=== PATIENT | male | born 1945 | race Caucasian/White ===

== ENCOUNTER → 2017-08-08 | Outpatient (CLI) | payer OTHER, BC ==
[~2017-08-08] MED LIST: CAYENNE PO; COZAAR 25 MG TA25 M2 PO; FISH OIL 1,0001 EAC5 PO; GLUCOSAMINE &1 EAC1 PO; VITAMINC500 PO
[2017-08-08 12:15] LABS: CREATININE 1.1 mg/dL (0.7-1.3)
== END ==
LOC: CAT 05:37
PROVIDERS: Internal Medicine Pulmonary Disease
DX: R91.1 Solitary pulmonary nodule (principal); D3A.090 Benign carcinoid tumor of the bronchus and lung; J98.4 Other disorders of lung; R91.8 Other nonspecific abnormal finding of lung field; J94.8 Other specified pleural conditions; K76.0 Fatty (change of) liver, not elsewhere classified; J98.09 Other diseases of bronchus, not elsewhere classified; Z85.118 Personal history of other malignant neoplasm of bronchus and lung

== ENCOUNTER → 2017-09-12 | Outpatient (CLI) | payer OTHER, BC ==
--- NOTE | ~2017-09-12 | PATH ---
[facility] [address] [facility] [place] [address] PATHOLOGY RPT PROCEDURE Name: DANIE RICE Room #: REG [facility]#: [id number] Admission: 09/12/17 Date of : 43 Discharge: Report #: [id number] Path Case #: [id number] Note [facility] Accession Number: [id number] TESTS RESULT FLAG UNITS REF RANGE LAB Clinician Provided Cytology Information No. of containers..01 Other (Miscellaneous) Source: BRONCH WASHING DIAGNOSIS: 02 BRONCH WASHING NEGATIVE FOR MALIGNANT CELLS. NORMAL BRONCHIAL CELLS AND MACROPHAGES ARE PRESENT. PULMONARY MACROPHAGES PRESENT, INDICATIVE OF LOWER RESPIRATORY TRACT SAMPLING. Signed out by: Samantha Keating MD, Pathologist NPI- [id number] Performed by: Marvel Salcedo, Veneer Drier Tailer ([facility]) Gross description: 01 13ML, RED, CLOUDY /LCS FLAG LEGEND: L-Low Normal,H-High Normal,LL-Alert Low,HH-Alert High <-Panic Low,>-Panic High,A-Abnormal,AA-Critical Abnormal Performed at: [address] [place] [address] Dante Lynne MD, [address] [address] Samantha Keating MD, Performed at: [address], [place], [place] [id number] MD Dante Lynne MD Phone: [phone]
--- NOTE | ~2017-09-12 | P ---
[facility] [place] [address] PROCEDURE REPORT Name: DWAYNEARY Room #: REG [facility]#: [id number] Admission: 09/12/17 Attend Phys: Medhat Diallo MD Discharge: Date of : 43 Report #: [id number] THIS REPORT FOR: //name// CC: Tahir Diallo DATE OF SERVICE: 09/12/2017 PROCEDURE: Fiberoptic bronchoscopy with biopsies of a stenosis of the right main stem bronchus. 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 ASA classification class 2. PROCEDURE NOTATION: After discussing risks, benefits of planned procedure with the patient, he desired to proceed. After obtaining informed consent, he was brought to [employer], was placed on continuous cardiopulmonary monitoring and supplemental oxygen, then given 2% lidocaine nebulized to anesthetize the upper respiratory tract. Once accomplished, he received conscious sedation. A total of 5 mg of Versed and 50 mcg of fentanyl were titrated during the procedure to provide adequate sedation. Once accomplished, a fiberoptic bronchoscope was advanced through an oral bite block until the vocal cords were visualized. Vocal cords moved appropriately both before and after procedure. 1% lidocaine was instilled in the vocal cords to provide topical anesthesia. Bronchoscope was then passed in the trachea and 1% lidocaine was instilled in the tracheobronchial tree bilaterally for topical anesthesia. Once complete, airways were surveyed. FINDINGS: Left-sided structures appeared patent. No significant anatomic variation or disease. Right main stem bronchus was severely stenotic. Several cytologic brushings and biopsies were obtained in the area of stenosis. Was not able to advance the bronchoscope beyond the stenosis due to the tightness of the opening. Some minor secretions were noted emanating from this airway as well. It was easy to pass the brush and forceps through the opening. Washings of this area were then collected and sent for microbiologic and cytologic tests. The patient tolerated procedure with no noted complications. IMPRESSION: Tight stenosis right main stem bronchus, likely will need some sort of intervention, possible recurrent malignancy versus airway stenosis from prior surgery and radiation. Suggest to await biopsies and culture results. By: [id number] Medhat Diallo MD /nt
--- NOTE | ~2017-09-12 | PATH ---
[facility] [address] [place] [address] PATHOLOGY RPT PROCEDURE Name: DANIE RICE Room #: REG [facility] Brittney.#: [id number] Admission: 09/12/17 Date of : 43 Discharge: Report #: [id number] Path Case #: [id number] [facility] Accession Number: [id number] . 01 Material submitted: . R MAINSTEM BRONCHUS . 01 Clinical history: . Airway stenosis . 02 Diagnosis: Bronchus, right mainstem bronchus, biopsy: - Squamous metaplasia with mild chronic inflammation, consistent with reactive changes. - Negative for dysplasia or malignancy. (IUV:mgr; 09/15/17) QRQ/09/15/2017 . 02 Electronically signed: . Samantha Keating MD, Pathologist NPI- [id number] . 01 Gross description: . The specimen is received in formalin, labeled "Marcy Hussein mainstem bronchus biopsy". Received are multiple minute fragments of pale ramirez soft tissue measuring 0.2 x 0.2 x 0.1 cm in aggregate dimensions. The specimen is filtered and entirely submitted in cassette A1. (CAA; 09/12/2017) QAC/QAC . 02 Pathologist provided ICD-10: J42 . 02 CPT . 720644 Performed at: [address], [place], [place] [id number] MD Dante Lynne MD Phone: [phone] Performed at: [address] [id number] MD Samantha Keating MD Phone: [phone]
--- NOTE | ~2017-09-12 | PATH ---
[facility] [address] [place] [address] PATHOLOGY RPT PROCEDURE Name: DANIE RICE Room #: REG [facility]#: [id number] Admission: 09/12/17 Date of : 43 Discharge: Report #: [id number] Path Case #: [id number] Note [facility] Accession Number: [id number] TESTS RESULT FLAG UNITS REF RANGE LAB Clinician Provided Cytology Information No. of containers..01 Other (Miscellaneous) Source: BRONCH BRUSH TIP DIAGNOSIS: 02 BRONCH BRUSH TIP NEGATIVE FOR MALIGNANT CELLS. REACTIVE BRONCHIAL CELLS ARE PRESENT. NORMAL BRONCHIAL CELLS AND MACROPHAGES ARE PRESENT. Signed out by: Samantha Keating MD, Pathologist NPI- [id number] Performed by: Marvel Salcedo, Lvn ([facility]) Gross description: 01 1 BYulianaT, /SHANI FLAG LEGEND: L-Low Normal,H-High Normal,LL-Alert Low,HH-Alert High <-Panic Low,>-Panic High,A-Abnormal,AA-Critical Abnormal Performed at: [address] [place] [address] Dante Lynne MD, [address] [address] Samantha Keating MD, Performed at: [address], [place], [place] [id number] MD Dante Lynne MD Phone: [phone]
--- NOTE | ~2017-09-12 | PATH ---
[facility] [place] [address] [address] PATHOLOGY RPT PROCEDURE Name: DANIE RICE Room #: REG [facility]#: [id number] Admission: 09/12/17 Date of : 43 Discharge: Report #: [id number] Path Case #: [id number] Note [facility] Accession Number: [id number] TESTS RESULT FLAG UNITS REF RANGE LAB Clinician Provided Cytology Information No. of containers..01 Slide Source: RT BRONCHUS BRUSHING DIAGNOSIS: RT BRONCHUS BRUSHING NEGATIVE FOR MALIGNANT CELLS. REACTIVE BRONCHIAL CELLS ARE PRESENT. PULMONARY MACROPHAGES PRESENT, INDICATIVE OF LOWER RESPIRATORY TRACT SAMPLING. AIR DRYING ARTIFACT PRESENT OBSCURING DETAILS. Signed out by: 02 Samantha Keating MD, Pathologist NPI- [id number] Performed by: 01 Marvel Salcedo, Watch Manufacturing Supervisor (ASCP) FLAG LEGEND: L-Low Normal,H-High Normal,LL-Alert Low,HH-Alert High <-Panic Low,>-Panic High,A-Abnormal,AA-Critical Abnormal Performed at: [address] [place] [address] Dante Lynne MD, [address] [address] Samantha Keating MD, A duplicate report has been generated due to demographic updates. Performed at: [address], [place], [place] [id number] MD Dante Lynne MD Phone: [phone]
== END | disposition home or self-care (01) ==
LOC: CATH 07:10
DX: J42 Unspecified chronic bronchitis (principal); Z85.89 Personal history of malignant neoplasm of other organs and systems; Z98.890 Other specified postprocedural states

== ENCOUNTER → 2021-01-10 | Outpatient (CLI) | payer OTHER, BC | LOC: HYPER 08:04 | PROVIDERS: ATTEND Emergency Medicine | DX: S30.860D Insect bite (nonvenomous) of lower back and pelvis, subsequent encounter (principal); L08.89 Other specified local infections of the skin and subcutaneous tissue; L03.317 Cellulitis of buttock; L73.8 Other specified follicular disorders; I10 Essential (primary) hypertension; I48.0 Paroxysmal atrial fibrillation; M19.90 Unspecified osteoarthritis, unspecified site; F17.200 Nicotine dependence, unspecified, uncomplicated; Z85.118 Personal history of other malignant neoplasm of bronchus and lung ==

== ENCOUNTER → 2021-02-07 | Outpatient (CLI) | payer OTHER, BC | LOC: HYPER 08:40 | PROVIDERS: ATTEND Emergency Medicine | DX: S30.860D Insect bite (nonvenomous) of lower back and pelvis, subsequent encounter (principal); L03.317 Cellulitis of buttock; L08.89 Other specified local infections of the skin and subcutaneous tissue; I10 Essential (primary) hypertension; L73.8 Other specified follicular disorders; M19.90 Unspecified osteoarthritis, unspecified site; G51.0 Bell's palsy; I48.0 Paroxysmal atrial fibrillation; F17.200 Nicotine dependence, unspecified, uncomplicated; Z85.118 Personal history of other malignant neoplasm of bronchus and lung; Z79.899 Other long term (current) drug therapy; W57.XXXD Bitten or stung by nonvenomous insect and other nonvenomous arthropods, subsequent encounter ==